=== PATIENT | female | born 1980 | race Caucasian/White ===

== ENCOUNTER 2016-05-02 19:59 | Emergency (ER) | payer SELFPAY ==
[~2016-05-02 19:59] MED LIST: ACYCLOVIR 400 MG TAB PO SCH
[2016-05-02] MEDS ORDERED: diphenhydrAMINE 25 MG CAP PO ONE (22:09)
[2016-05-02] MEDS ORDERED: ACYCLOVIR 400 MG TAB PO ONE (22:24)
--- NOTE | 2016-05-02 22:25 | EDPHY ---
H & P Stated Complaint: full body rash Time Seen by Provider: 05/02/16 22:03 HPI/ROS: HPI The patient presents with rash throughout her body which has been present for the last 2 days. She says it probably began next to her right ear and has spread now to involve her mouth, head, trunk, arms and legs. It is very pruritic though not painful. She has not had any fevers or chills or headaches with this. She has never had the chickenpox. She denies any new exposures to lotions or soaps. She has not been around anyone with a similar rash. She is homeless and sleeps outside. She has taken Benadryl with some improvement in her symptoms.. REVIEW OF SYSTEMS Constitutional: No fever, no chills. Eyes: No discharge. ENT: No sore throat. Cardiovascular: No chest pain, no palpitations. Respiratory: No cough, no shortness of breath. Gastrointestinal: No abdominal pain, no vomiting. Genitourinary: No hematuria. Musculoskeletal: No back pain. Skin: No rashes. Neurological: No headache. PMHx: Healthy, no diabetes, no hypertension Soc Hx: Homeless PHYSICAL General Appearance: Alert, no distress Eyes: Pupils equal and round no pallor or injection ENT, Mouth: Mucous membranes moist Respiratory: There are no retractions, lungs are clear to auscultation Cardiovascular: Regular rate and rhythm Gastrointestinal: Abdomen is soft and non-tender, no masses, bowel sounds normal Neurological: A&O, moves all extremities Skin: Warm and dry, multiple erythematous vesicles throughout her trunk, arms and legs, erythematous vesicles in her posterior pharynx and palate Musculoskeletal: Neck is supple non tender Extremities: symmetrical, full range of motion Psychiatric: Patient is oriented X 3, there is no agitation Source: Patient Exam Limitations: No limitations - Personal History LMP (Females 10-55): Unknown Current Tetanus/Diphtheria Vaccine: No Current Tetanus Diphtheria and Acellular Pertussis (TDAP): No Tetanus Vaccine Date: 2014 - Medical/Surgical History Hx Asthma: No Hx Chronic Respiratory Disease: No Hx Diabetes: No Hx Cardiac Disease: No Hx Renal Disease: No Hx Cirrhosis: No Hx Alcoholism: No Hx HIV/AIDS: No Hx Splenectomy or Spleen Trauma: No Other PMH: denies - Social History Smoking Status: Current every day smoker Constitutional: Initial Vital Signs Temperature (C) 36.9 C 05/02/16 20:04 Heart Rate 104 H 05/02/16 20:04 Respiratory Rate 16 05/02/16 20:04 Blood Pressure 116/94 H 05/02/16 20:04 O2 Sat (%) 98 05/02/16 20:04 O2 Delivery Mode Room Air Allergies/Adverse Reactions: No Known Allergies Allergy (Unverified 09/24/14 03:42) Home Medications: Medication Instructions Recorded Ibuprofen [Motrin] 400 mg PO DAILY PRN 02/19/15 Acyclovir 800 mg PO 5XD #35 tab 05/02/16 Medical Decision Making Differential Diagnosis: This is a 35-year-old homeless female with no significant past medical history who presents with 2 days of pruritic rash throughout her body. Differential diagnosis includes chicken pox, scabies, bedbugs, fleas, less likely cellulitis. Given the appearance of this rash and its location, I feel chicken pox is the most likely etiology. She was not vaccinated and did not have chickenpox as a child. She does not know of anyone she was exposed to. I have discussed the diagnosis with her. I will start her on a course of acyclovir. She has Benadryl at home. She will be discharged and I have counseled her on complications of chickenpox. She can follow up with [facility] if she needs further care or return to the emergency room if she is worse in any way. - Data Points Medications Given: Discontinued Medications Acyclovir (Acyclovir) 800 mg PO EDNOW ONE Stop: 05/02/16 22:25 Last Admin: 05/02/16 22:42 Dose: 800 mg Diphenhydramine HCl (Benadryl) 50 mg PO EDNOW ONE Stop: 05/02/16 22:10 Last Admin: 05/02/16 22:16 Dose: 50 mg Departure - Departure Disposition: Home, Routine, Self-Care Clinical Impression: Chicken pox Condition: Good Instructions: Chickenpox (ED) Referrals: [facility] [Outside] - As per Instructions Prescriptions: Acyclovir 800 mg PO 5XD #35 tab
[2016-05-02 23:45] VITALS: BP 128/77; PULSE 88; RESP 18; TEMP 98.6; O2SAT 96
== END 2016-05-02 22:50 | disposition home or self-care (01) ==
LOC: EEVIPCON 19:59
DX: B01.9 Varicella without complication (principal); F17.200 Nicotine dependence, unspecified, uncomplicated

== ENCOUNTER 2016-05-31 21:02 | Emergency (ER) | payer MEDICAID ==
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
[2016-05-31] MEDS ORDERED: ONDANSETRON 4 MG/2 ML VIAL ONE (21:13)
[2016-05-31] MEDS ORDERED: HYDROmorphONE/DILAUDID 1 MG/ML SYR ONE ×2 (21:13→21:25)
[2016-05-31] MEDS ORDERED: HYDROmorphONE/DILAUDID 1 MG/ML SYR IVP ONE ×4 (21:15→22:25)
[2016-05-31] MEDS ORDERED: ASPIRIN 81 MG CHEWABLE TAB ONE (21:30)
[2016-05-31] MEDS ORDERED: NS 1,000 ML IV ONE (21:40)
[2016-05-31] MEDS ORDERED: SILVER SULFADIAZINE 400 GM JAR TP PRN (21:40)
[2016-05-31 21:45] LABS: % IMMATURE GRANULYOCYTES 0.3 % (0.0-1.1); ABSOLUTE IMMATURE GRANULOCYTES 0.04 10^3/uL (0.00-0.10); ADD DIFF? NO; ADD MORPH? NO; ADD SCAN? NO; ATYPICAL LYMPHOCYTE FLAG 20 (0-99); FRAGMENT RBC FLAG 0 (0-99); HEMATOCRIT 41.8 % (38.0-47.0); HEMOGLOBIN 14.3 g/dL (12.6-16.3); LEFT SHIFT FLG 0 (0-99); LIPEMIA HEMOLYSIS FLAG 90 (0-99); MEAN CELL HEMOGLOBIN CONCENTR. 34.2 g/dL (32.4-36.7); MEAN CELL VOLUME 87.8 fL (81.5-99.8); MEAN PLATELET VOLUME 9.5 fL (8.7-11.7); PLATELET CLUMPS FLAG 0 (0-99); PLATELET COUNT 353 10^3/uL (150-400); RED BLOOD CELL COUNT 4.76 10^6/uL (4.18-5.33); RED CELL DISTRIBUTION WIDTH 13.2 % (11.5-15.2)
[2016-05-31 21:48] LABS: ANION GAP 13 mEq/L (8-16); CALCIUM 9.1 mg/dL (8.5-10.4); CARBON DIOXIDE 18 mEq/l (22-31); CHLORIDE 107 mEq/L (97-110); CREATININE 0.7 mg/dL (0.6-1.0); GLOMERULAR FILTRATION RATE > 60; GLUCOSE 114 mg/dL (70-100); POTASSIUM 3.9 mEq/L (3.5-5.2); SODIUM 138 mEq/L (134-144)
[2016-05-31] MEDS ORDERED: NEOSPORIN OPHT OINT 3.5GM EACHEYE ONE (21:48)
[2016-05-31] MEDS ORDERED: LR 1,000 ML IV ONE (22:03)
[2016-05-31] MEDS ORDERED: TDAP ADULT 0.5 ML INJ (BOOSTRIX) IM ONE (22:13)
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
[2016-05-31 23:14] VITALS: BP 130/101; PULSE 101; RESP 18; TEMP 98.4; O2SAT 100
== END 2016-05-31 22:30 | disposition short-term general hospital (02) ==
LOC: EDUNIT#
DX: T20.16XA Burn of first degree of forehead and cheek, initial encounter (principal); T20.32XA Burn of third degree of lip(s), initial encounter; T20.23XA Burn of second degree of chin, initial encounter; T22.112A Burn of first degree of left forearm, initial encounter; T21.14XA Burn of first degree of lower back, initial encounter; T31.10 Burns involving 10-19% of body surface with 0% to 9% third degree burns; F17.200 Nicotine dependence, unspecified, uncomplicated; X08.8XXA Exposure to other specified smoke, fire and flames, initial encounter
CPT/HCPCS: 96374; J1170; J2405